=== PATIENT | female | born 1940 | race Caucasian/White ===

== ENCOUNTER 2019-09-09 17:13 | Outpatient (CLI) | payer MEDICARE ==
[2019-09-09 17:34] LABS: INR-International Normal Ratio 2.9; Prothrombin Time 29.7 SEC (12.0-14.7)
== END 2019-09-09 17:14 | disposition home or self-care (01) ==
LOC: MADLAB 17:13
DX: Z51.81 Encounter for therapeutic drug level monitoring (principal); Z79.01 Long term (current) use of anticoagulants
CPT/HCPCS: 85610